=== PATIENT | male | born 1990 | race Two or more races ===

== ENCOUNTER 2024-02-25 12:04 | Emergency (ER) | payer OTHER ==
[~2024-02-25] VITALS: Ht 172.7 cm; Wt 77.1 kg
[2024-02-25] MEDS ORDERED: CEFTRIAXONE SODIUM 2,000 MG VIAL IV ONE (14:30)
[2024-02-25] MEDS ORDERED: KETOROLAC TROMETHAMINE 30 MG VIAL IV ONE (14:30)
[2024-02-25] MEDS ORDERED: CEFTRIAXONE SODIUM 2,000 MG VIAL ONE (15:15)
[2024-02-25] MEDS ORDERED: KETOROLAC TROMETHAMINE 30 MG VIAL ONE (15:15)
[2024-02-25 15:52] LABS: HEMOGLOBIN 14.5 g/dL (13-16.00); MEAN CELL VOLUME 84.8 fL (80.0-100.00); MEAN CORPUSCULAR HEMOGLOBIN 28.6 pg (27.00-32.0); MEAN CORPUSCULAR HGB CONC 33.7 g/dl (32.0-36.0); PLATELET COUNT 276 K/uL (150-450); RED BLOOD COUNT 5.06 M/uL (4.00-6.00); RED CELL DISTRIBUTION WIDTH 14.4 % (11.5-14.5)
[2024-02-25 16:19] LABS: CALCIUM 9.2 mg/dL (8.5-10.1); CREATININE SERUM 0.8 mg/dL (0.70-1.30); GFR 112.03; POTASSIUM 4.36 mEq/L (3.5-5.1)
[2024-02-25] MEDS ORDERED: AMOX-CLAV 875-1 EAC1 PO (17:15)
== END 2024-02-25 17:25 | disposition home or self-care (01) ==
LOC: ER 12:05
PROVIDERS: Nurse Practitioner Family
DX: L02.413 Cutaneous abscess of right upper limb (principal)